=== PATIENT | female | born 1990 | race Caucasian/White ===

== ENCOUNTER 2016-04-04 14:11 | Emergency (ER) | payer OTHER ==
[~2016-04-04] VITALS: Ht 170.2 cm; Wt 61.0 kg
[2016-04-04] MEDS ORDERED: NORCO 5/3251 TABLET PO (16:07)
[2016-04-04 17:03] VITALS: BP 132/88
== END 2016-04-04 17:04 | disposition home or self-care (01) ==
LOC: EME 14:11
PROC: 2W3CX1Z Immobilization of Right Lower Arm using Splint (ICD-10-PCS; principal; 2016-04-04)
DX: S52.531A Colles' fracture of right radius, initial encounter for closed fracture (principal); V00.321A Fall from snow-skis, initial encounter; Y93.23 Activity, snow (alpine) (downhill) skiing, snowboarding, sledding, tobogganing and snow tubing
CPT/HCPCS: 73080; 73090; 73110; 99281; 99284